=== PATIENT | female | born 1980 | race Caucasian/White ===

== ENCOUNTER 2021-12-08 13:30 | Emergency (ER) | payer OTHER ==
[~2021-12-08] VITALS: Ht 152.4 cm; Wt 68.0 kg
[2021-12-08 13:39] VITALS: BP_SYST 120
--- NOTE | 2021-12-08 13:44 | NUR ---
Triaged pt and placed in waiting room until bed becomes available. Pt c/o chest pain x3 days constant non-radiating accompanied by sob. VSs. A&Ox4. No n/v. Ambulatory with steady gait coming from home accompanied by . NKA. Only hx of migraines.
--- NOTE | 2021-12-08 14:20 | NUR ---
DR JOEL IN FOR EXAM
[2021-12-08 14:50] LABS: BASOPHILS % (AUTO) 0.5 % (0.0-2.0); EOSINOPHILS # (AUTO) 0.1 K/uL (0.0-0.4); EOSINOPHILS % (AUTO) 1.5 % (0.0-4.0); HEMATOCRIT 29.2 % (36-48); HEMOGLOBIN 9.2 g/dL (12.0-16.0); LYMPHOCYTES # (AUTO) 1.9 K/uL (1.0-5.5); LYMPHOCYTES % (AUTO) 32.1 % (20.5-51.5); MEAN CORPUSCULAR HEMOGLOBIN 23 pg (27-31); MEAN CORPUSCULAR HGB CONC 32 % (32-36); MEAN CORPUSCULAR VOLUME 73 fL (79.0-98.0); MONOCYTES # (AUTO) 0.2 K/uL (0.0-1.0); MONOCYTES % (AUTO) 3.8 % (1.7-9.3); NEUTROPHILS # (AUTO) 3.7 K/uL (1.8-7.7); NEUTROPHILS % (AUTO) 62.1 % (40.0-70.0); PLATELET COUNT (AUTO) 295 K/uL (130-430); RED BLOOD CELL COUNT(AUTO) 3.99 MIL/uL (4.2-6.2)
[2021-12-08 15:15] LABS: ANION GAP 6 (5-15); CALCIUM 9.1 mg/dL (8.4-11.0); CHLORIDE 104 mmol/L (98-107); CREATININE 0.82 mg/dL (0.55-1.30); GLUCOSE 95 mg/dL (70-99); POTASSIUM 3.6 mmol/L (3.5-5.1); SODIUM SERUM 137 mmol/L (136-145); UREA NITROGEN, BLOOD 12 mg/dL (8-21)
[2021-12-08 15:23] LABS: ALANINE AMINOTRANSFERASE 9 U/L (12-78); ALBUMIN 3.7 g/dL (3.4-4.8); ASPARTATE AMINOTRANSFERASE 11 U/L (10-37); LIPASE 104 U/L (73-393); TOTAL BILIRUBIN 0.3 mg/dL (0.0-1.0)
[2021-12-08 15:26] LABS: GFR AFRICAN AMERICAN 99 mL/min (>90)
[2021-12-08] MEDS ORDERED: ACET-2634 PO (17:07)
[2021-12-08] MEDS ORDERED: IBUP-1969 PO (17:07)
[2021-12-08 17:47] VITALS: BP_SYST 113
== END 2021-12-08 16:20 | disposition home or self-care (01) ==
LOC: SED 13:30
DX: R07.9 Chest pain, unspecified (principal); Z79.899 Other long term (current) drug therapy
CPT/HCPCS: 36415; 71045; 80053; 83690; 84484; 85025; 93005; 99285